=== PATIENT | male | born 1950 | race Caucasian/White ===

== ENCOUNTER 2021-07-29 14:36 | Outpatient (CLI) | payer MEDICARE, BC ==
[2021-07-29 16:22] LABS: #Basophils 0.1 10x3/uL (0.0-0.2); #Eosinphils 0.1 10x3/uL (0.0-0.5); #Monocytes 0.8 10x3/uL (0.0-1.1); %Eosinophils 0.7 % (0.0-6.0); %Lymphocytes 17.2 % (18.0-47.0); %Neutrophils 69.7 % (40.0-75.0); Hemoglobin 12.6 g/dL (13.5-17.5); Mean Corpuscular HGB CONC 32.9 g/dL (32.0-36.0); Mean Corpuscular Hemoglobin 32.4 pg (27.0-33.0); Mean Corpuscular Volume 98.5 fl (81.2-95.1); Mean Platelet Volume 10.3 fl (7.4-10.4); Platelet Count 251 10x3/uL (150-450); RBC Distribution Width 12.8 % (11.5-14.5); Red Blood Cell (RBC) Count 3.89 10x6/uL (4.32-5.72); White Blood Cell (WBC) Count 7.2 10x3/uL (3.5-10.5)
[2021-07-29 21:08] LABS: Anion Gap 13 mmol/L (10-20); BUN (Urea Nitrogen) 16 mg/dL (8.4-25.7); Calc. Creatinine Clearance 0 mL/min (70-130); Carbon Dioxide 28 mmol/L (23-31); Chloride 104 mmol/L (98-107); Glucose 152 mg/dL (80-115); Potassium 4.7 mmol/L (3.5-5.1); Sodium 140 mmol/L (136-145)
[2021-07-30 11:17] LABS: SARS-CoV-2 PCR by NAA Not Detected (NotDetected)
== END 2021-07-29 14:37 | disposition home or self-care (01) ==
LOC: LABBT 14:36
PROVIDERS: ATTEND Orthopaedic Surgery
DX: Z01.818 Encounter for other preprocedural examination (principal); G56.02 Carpal tunnel syndrome, left upper limb; Z20.822 Contact with and (suspected) exposure to COVID-19
CPT/HCPCS: 71046; 80048; 85025; U0003; U0005; 93005; 93010

== ENCOUNTER 2021-08-01 07:35 | Day surgery (SDC) | payer MEDICARE, BC ==
[2021-07-31 12:20] VITALS: BMI 23.8
[2021-08-01] MEDS ORDERED: Fentanyl 100 MCG/2 ML VIAL ONE (09:17)
[2021-08-01] MEDS ORDERED: Lidocaine 1% (PF) 30 ML VIAL ONE (09:24)
[2021-08-01] MEDS ORDERED: ePHEDrine 50 MG/ML VIAL ONE (09:42)
[2021-08-01] MEDS ORDERED: Lidocaine 1% PF 5 ML VIAL ONE (09:42)
[2021-08-01] MEDS ORDERED: Ondansetron PF 4 MG/2 ML Vial ONE (09:42)
[2021-08-01] MEDS ORDERED: PROPOFOL 200 MG/20 ML VIAL ONE (09:42)
[2021-08-01] MEDS ORDERED: Dexamethasone 20 MG/5 ML VIAL ONE (09:42)
== END 2021-08-01 12:15 | disposition home or self-care (01) ==
LOC: SDC 07:35
PROVIDERS: ATTEND Orthopaedic Surgery
PROC: 01N50ZZ Release Median Nerve, Open Approach (ICD-10-PCS; principal; 2021-08-01)
DX: G56.02 Carpal tunnel syndrome, left upper limb (principal); S46.211A Strain of muscle, fascia and tendon of other parts of biceps, right arm, initial encounter; E78.5 Hyperlipidemia, unspecified; G40.909 Epilepsy, unspecified, not intractable, without status epilepticus; G62.9 Polyneuropathy, unspecified; Z87.891 Personal history of nicotine dependence; Z79.82 Long term (current) use of aspirin; Z79.899 Other long term (current) drug therapy; Z91.048 Other nonmedicinal substance allergy status; W20.8XXA Other cause of strike by thrown, projected or falling object, initial encounter
CPT/HCPCS: J0690; J1100; J2001; J2405; J2704; J3010; J3490

== ENCOUNTER 2024-04-19 14:10 | Outpatient (CLI) | payer MEDICARE, BC | END 2024-04-19 14:11 | disposition home or self-care (01) | LOC: NM 14:10 | PROVIDERS: ATTEND Physician Assistant Medical | DX: K82.8 Other specified diseases of gallbladder (principal); K31.89 Other diseases of stomach and duodenum; R74.01 Elevation of levels of liver transaminase levels; R10.11 Right upper quadrant pain | CPT/HCPCS: 78227; A9537 ==

== ENCOUNTER 2024-10-03 13:57 | Outpatient (CLI) | payer MEDICARE, BC ==
[2024-10-03 14:45] LABS: #Basophils 0.06 10x3/uL (0.0-0.2); %Basophils 0.8 % (0.0-1.0); %Eosinophils 1.1 % (0.0-10.0); %Lymphocytes 23.2 % (21.0-51.0); %Monocytes 8.9 % (0.0-10.0); %Neutrophils 65.6 % (42.0-75.0); Hematocrit 36.6 % (42.0-52.0); Hemoglobin 12.1 g/dL (14.0-18.0); Mean Corpuscular HGB CONC 33.1 g/dL (32.0-36.0); Mean Corpuscular Hemoglobin 30.2 pg (27.0-31.0); Mean Corpuscular Volume 91.3 fL (78.0-98.0); Mean Platelet Volume 10.1 fL (7.4-10.4); Platelet Count 243 10x3/uL (130-400); RBC Distribution Width 13.3 % (11.5-14.5); Red Blood Cell (RBC) Count 4.01 mill/uL (4.70-6.10)
== END 2024-10-03 13:58 | disposition home or self-care (01) ==
LOC: LABBT 13:57
PROVIDERS: ATTEND Orthopaedic Surgery Hand Surgery
DX: Z01.812 Encounter for preprocedural laboratory examination (principal); M65.331 Trigger finger, right middle finger
CPT/HCPCS: 85025; 93005; 93010

== ENCOUNTER 2024-10-06 08:02 | Day surgery (SDC) | payer MEDICARE ==
[2024-10-03 14:10] VITALS: BMI 21.2
[2024-10-06] MEDS ORDERED: Bupivacaine PF 0.5% 30 ML VIAL ONE (08:38)
[2024-10-06] MEDS ORDERED: Bacitracin Zinc Ointment 30 gm TUBE ONE (08:38)
[2024-10-06] MEDS ORDERED: CEFAZOLIN 2 GM VIAL ONE (09:08)
[2024-10-06] MEDS ORDERED: Midazolam HCl 2 mg/2 ml Vial ONE (09:18)
[2024-10-06] MEDS ORDERED: ePHEDrine Sulfate 50 MG/10 ML VIAL ONE (09:39)
[2024-10-06] MEDS ORDERED: Ketorolac Tromethamine 30 MG (1 mL) VIAL ONE (09:50)
[2024-10-06] MEDS ORDERED: Dexamethasone 20 MG/5 ML VIAL ONE (09:54)
[2024-10-06] MEDS ORDERED: Lidocaine 1% PF 5 ML VIAL ONE (09:54)
[2024-10-06] MEDS ORDERED: fentaNYL PF 100 MCG/2 ML SYRINGE ONE (09:54)
[2024-10-06] MEDS ORDERED: PROPOFOL 20 ML ONE (09:54)
[2024-10-06] MEDS ORDERED: Ondansetron PF 4 MG/2 ML Vial ONE (09:54)
== END 2024-10-06 12:00 | disposition home or self-care (01) ==
LOC: SDC 08:02
PROVIDERS: ATTEND Orthopaedic Surgery Hand Surgery
PROC: 0LN70ZZ Release Right Hand Tendon, Open Approach (ICD-10-PCS; principal; 2024-10-06)
PROC: 0LN70ZZ Release Right Hand Tendon, Open Approach (ICD-10-PCS; 2024-10-06)
DX: M65.331 Trigger finger, right middle finger (principal); M65.311 Trigger thumb, right thumb; E78.5 Hyperlipidemia, unspecified; G62.9 Polyneuropathy, unspecified; C71.9 Malignant neoplasm of brain, unspecified; K90.9 Intestinal malabsorption, unspecified; Z98.890 Other specified postprocedural states; Z79.82 Long term (current) use of aspirin
CPT/HCPCS: 26055 ×2; A6223; J0665; J1100; J2250; J2405; J2704; J1885